=== PATIENT | female | born 1955 | race African-American/Black ===

== ENCOUNTER 2016-12-11 10:58 | Emergency (ER) | payer MEDICAID ==
[~2016-12-11] VITALS: Ht 160 cm; Wt 78.8 kg
[2016-12-11 11:06] VITALS: BP 142/86
== END 2016-12-11 11:39 | disposition home or self-care (01) ==
LOC: ER 11:21
DX: K12.0 Recurrent oral aphthae (principal); J45.909 Unspecified asthma, uncomplicated; I10 Essential (primary) hypertension
CPT/HCPCS: 99282

== ENCOUNTER 2022-04-24 14:05 | Emergency (ER) | payer MEDICARE, OTHER ==
[~2022-04-24] VITALS: Ht 162.6 cm; Wt 72.0 kg
[2022-04-24 14:15] VITALS: BP 177/99
[2022-04-24] MEDS ORDERED: IBUP-2029 MT (19:40)
== END 2022-04-24 20:08 | disposition home or self-care (01) ==
LOC: ER 14:05
DX: M79.641 Pain in right hand (principal); M79.662 Pain in left lower leg; R07.81 Pleurodynia; M79.89 Other specified soft tissue disorders; G89.11 Acute pain due to trauma; V49.49XA Driver injured in collision with other motor vehicles in traffic accident, initial encounter; Y93.89 Activity, other specified; Y92.488 Other paved roadways as the place of occurrence of the external cause
CPT/HCPCS: 73130; 73590; 99284; Z7610